=== PATIENT | female | born 1945 | race Caucasian/White ===

== ENCOUNTER 2016-03-25 15:07 | Inpatient (IN) | payer MEDICARE, MEDICAID ==
--- NOTE | 2016-03-25 15:28 | ED Physician Chart ---
Chief Complaint/HPI - Patient Information Date Seen:: 03/25/16 Time Seen:: 15:18 History of Present Illness:: Pt is Hebrew speaking. Interpretation is provided by our staff member Chasity. Pt has had recurrent vertigo for about 15 years, worse over past 2 years. Pt has transient episode of vertigo at about noon which has resolved. Pt had transient nausea. No V/D. No fever. Pt's baseline function is ambulatory with aid of a walker or wheelchair. Allergies:: Allergies Allergy/AdvReac Type Severity Reaction Status Date / Time No Known Allergies Allergy Verified 03/25/16 15:16 Vitals:: Vital Signs - 8 hr 03/25/16 15:16 Temp 98.5 F HR 94 RR 21 BP 146/85 O2 Sat % 97 Historian:: Patient Family MD/PCP:: Dr. Bailon. LMP:: Postmenopausal. Review:: Nurse's Note Reviewed, Transfer documents Reviewed Past Medical History - Past Medical History Past Medical History: HTN, PUD/GERD, Arthritis, Other (Peripheral vascular disease. Peripheral neuropathy.) Family History: None Social History: Non Smoker, No Alcohol, No Drug Use, , Care Facility Employment:: Retired. Surgical History: Cholecystectomy (about 18 y/a.), Hysterectomy (6 y/a), HIP (R hip replacement surgery about a month ago.), other (Abdominal surgery related to bowel obstruction about 6 y/a. Bilateral knee surgeries '13) Psychiatricy History: None Medication: Reviewed Physical Exam - Physical Examination General/Constitutional: Awake, Well-developed, well-nourished, Alert, No distress, Non-toxic appearing Other Gen/Cons comments:: Breathes comfortably, speaks clearly, and interacts normally. Head: Atraumatic Eyes: Lids, conjuctiva normal, PERRL, EOMI Skin: Well hydrated, No lymphadenopathy Other Skin comments:: Well healed surgical scar noticed at R lateral hip region. ENMT: External ears, nose nl, TM canals nl, Nasal exam nl, Oropharynx nl, Tonsils nl Neck: Nontender, Full ROM w/o pain, No JVD, No nuchal rigidity, No bruit, No mass, No stridor Respiratory: Nl effort/Exclusion, Clear to Auscultation, No Wheeze/Rhonchi/Rales Cardio Vascular: RRR, No murmur, gallop, rubs, NL S1 S2 GI: No tenderness/rebounding/guarding, No organomegaly, No hernia, Normal BS's, Nondistended, No mass/bruits, No McBurney tenderness Other GI comments:: Abdomen is soft. Well healed longitudinal midline surgical scar noticed. : No CVA tenderness Extremities: No edema Neuro/Psych: Alert/oriented (oriented x 3.), Mood normal, No focal deficits Other Neuro/Psych comments:: CN II - XII are grossly intact. Cerebellar exam (F to N, ESAU): normal. Labs/Radiology/EKG Results - Lab Results Results: Laboratory Tests 03/25/16 03/25/16 15:45 15:45 WBC 16.6 H RBC 4.89 Hgb 13.4 Hct 39.8 MCV 81.5 MCH 27.4 MCHC Differential 33.6 RDW 14.0 Plt Count 298 MPV 8.1 Neutrophils % 84.5 H Lymphocytes % 7.8 L Monocytes % 6.3 Eosinophils % 0.4 Basophils % 1.0 Sodium 130 L Potassium 3.8 Chloride 95 L Carbon Dioxide 25.9 Anion Gap 12.9 BUN 14 Creatinine 0.7 Est GFR ( Amer) TNP Est GFR (Non-Af Amer) TNP BUN/Creatinine Ratio 20.0 Glucose 112 H Calcium 9.4 Urinalysis is pending. ED Septic Shock - . Is Septic Shock (SBP<90, OR Lactate>4 mmol\L) present?: No - <6hrs of presentation: Vital Signs: Vital Signs - 8 hr 03/25/16 15:16 Temp 98.5 F HR 94 RR 21 BP 146/85 O2 Sat % 97 Reassessment (Disposition) - Reassessment Reassessment:: 1700 Pt remains stable. Lab results just became available. Lab findings have been reviewed with pt. Management plan has been discussed. Dr. Bailon is to be contacted. 17[address] Case was discussed with Dr. Bailon. Pt is to be admitted to [facility] under his care. - Diagnosis Diagnosis:: Transient vertigo by hx, stable and currently asymptomatic. Leukocytosis of unknown significance. Mild hyponatremia. - Patient Disposition Admitted to:: Med/Surg Admitting Medical Physician:: Natanael Bailon Time:: 17:55 Condition at Disposition:: Stable
[2016-03-25 16:29] LABS: % EOSINOPHILS 0.4 % (0.0-5.0); % LYMPHOCYTES 7.8 % (20.0-50.0); % MONOCYTES 6.3 % (2.0-10.0); % NEUTROPHILS 84.5 % (40.0-80.0); HEMATOCRIT 39.8 % (35.0-45.0); HEMOGLOBIN 13.4 gm/dL (11.7-16.1); MEAN CELL VOLUME 81.5 fl (81-100); MEAN CORPUSCULAR HEMOGLOBIN 27.4 pg (27.0-31.0); MEAN CORPUSCULAR HGB CONC 33.6 pg (28.0-36.0); MEAN PLATELET VOLUME 8.1 fl; PLATELET COUNT 298 Th/cmm (150-400); RED BLOOD COUNT 4.89 Mil/cmm (3.80-5.20); WHITE BLOOD COUNT 16.6 Th/cmm (4.8-10.8)
[2016-03-25 16:39] LABS: ANION GAP 12.9 (7.0-16.0); BUN - UREA NITROGEN 14 mg/dL (7-25); CALCIUM SERUM 9.4 mg/dL (8.6-10.3); CARBON DIOXIDE 25.9 mEq/L (21.0-31.0); CHLORIDE 95 mEq/L (98-107); CREATININE - SERUM 0.7 mg/dL (0.6-1.2); GLUCOSE 112 mg/dL (70-105); POTASSIUM SERUM 3.8 mEq/L (3.5-5.1); SODIUM SERUM 130 mEq/L (136-145)
[2016-03-25 18:02] LABS: URINE BILIRUBIN NEGATIVE (NEGATIVE); URINE BLOOD TRACE (NEGATIVE); URINE COLOR YELLOW; URINE GLUCOSE (UA) NEGATIVE (NEGATIVE); URINE KETONE NEGATIVE (NEGATIVE)
[2016-03-25 18:03] LABS: URINE BACTERIA NONE SEEN /hpf (NONE SEEN); URINE EPITHELIAL CELLS NONE SEEN /lpf (FEW); URINE PROTEIN NEGATIVE (NEGATIVE); URINE RBC 0-2 /hpf (0-5); URINE UROBILINOGEN 0.2 E.U./dL (0.2 - 1.0); URINE WBC 0-2 /hpf (0-5)
[2016-03-25] MEDS ORDERED: Hydrocodone/APAP 5mg/325mg Tab PO PRN (19:40)
[2016-03-25] MEDS ORDERED: Magnesium Hydroxide (MOM) 30 mL UDC PO PRN (19:40)
[2016-03-25] MEDS ORDERED: Albuterol Nebulizer 2.5mg/3mL IH PRN (19:47)
[2016-03-25] MEDS ORDERED: Ipratropium Neb 0.5 mg/2.5 mL UD IH PRN (19:47)
[2016-03-25] MEDS ORDERED: guaiFENesin 200 MG/10 ML UDC PO PRN (19:48)
[2016-03-25] MEDS ORDERED: Maalox 30 mL Cup PO PRN (19:48)
[2016-03-25] MEDS: Levofloxacin 500mg/100mL 500 MG/100 ML BAG IV SCH (21:44)
[2016-03-25] MEDS: D5-0.45NS 1,000 ML IV SCH (21:45)
[2016-03-26 05:36] LABS: NEUTROPHILE ABSOLUTE 4.5 Th/cmm (1.8-8.0)
[2016-03-26 05:42] LABS: % BASOPHILS 0.5 % (0.0-2.0); % EOSINOPHILS 1.9 % (0.0-5.0); % LYMPHOCYTES 24.9 % (20.0-50.0); % MONOCYTES 11.5 % (2.0-10.0); % NEUTROPHILS 61.2 % (40.0-80.0); HEMOGLOBIN 11.9 gm/dL (11.7-16.1); MEAN CELL VOLUME 81.5 fl (81-100); MEAN CORPUSCULAR HEMOGLOBIN 27.3 pg (27.0-31.0); MEAN CORPUSCULAR HGB CONC 33.5 pg (28.0-36.0); MEAN PLATELET VOLUME 7.6 fl; PLATELET COUNT 265 Th/cmm (150-400); RED BLOOD COUNT 4.34 Mil/cmm (3.80-5.20); RED CELL DISTRIBUTION WIDTH 14.1 % (11.5-20.0)
[2016-03-26 05:52] LABS: HEMATOCRIT 35.4 % (35.0-45.0); WHITE BLOOD COUNT 7.2 Th/cmm (4.8-10.8)
[2016-03-26 05:56] LABS: ALB/GLOB RATIO 1.2 (1.0-1.8); ALKALINE PHOSPHATASE 61 U/L (34-104); ANION GAP 11.6 (7.0-16.0); BILIRUBIN,TOTAL 0.4 mg/dL (0.3-1.0); BUN - UREA NITROGEN 10 mg/dL (7-25); BUN/CREATININE RATIO 14.3; CALCIUM SERUM 9.2 mg/dL (8.6-10.3); CARBON DIOXIDE 26.2 mEq/L (21.0-31.0); CHLORIDE 98 mEq/L (98-107); CREATININE - SERUM 0.7 mg/dL (0.6-1.2); GLUCOSE 105 mg/dL (70-105); MAGNESIUM 1.8 mg/dL (1.9-2.7); POTASSIUM SERUM 3.8 mEq/L (3.5-5.1); SGOT 14 U/L (13-39); SGPT/ALT 7 U/L (7-52); SODIUM SERUM 132 mEq/L (136-145)
[2016-03-26 06:32] LABS: TSH 0.79 uIU/ml (0.34-5.60)
[2016-03-26] MEDS: Pantoprazole 40 mg EC Tab PO SCH (08:35)
[2016-03-26] MEDS: Aspirin 325 mg EC PO SCH (08:35)
[2016-03-26] MEDS: Multivitamin w/ Minerals Tab PO SCH (08:35)
--- NOTE | 2016-03-26 09:40 | Diagnostic Imaging Report ---
CHEST X-RAY: AP view INDICATION: Pneumonia COMPARISON: None FINDINGS: Bibasal pleural thickening is noted. Mild chronic changes are seen with no focal consolidation pleural effusions. Heart size is at the upper limits of normal. Tortuous senescent aorta is noted. Mild prominence of the aortic knob is noted. Degenerative changes of the spine are noted. IMPRESSION: No focal consolidation identified. Mild prominence of the aortic knob with tortuous, senescent aorta. If indicated, CT would provide additional detail and assessment.
[2016-03-26] MEDS: D5-0.45NS 1,000 ML IV SCH (11:30)
[2016-03-26] MEDS ORDERED: Mag Sulfate 2gm/50mL Premix 2 GM/50 ML BAG IV ONE (15:24)
--- NOTE | 2016-03-26 19:02 | History & Physical ---
CHIEF COMPLAINT: Vomiting and dizziness. HISTORY OF PRESENT ILLNESS: This is a 71-year-old female with history of osteoarthritis, hypertension, and GERD, who was admitted from nursing facility secondary to intractable vomiting. The patient was dizzy and not acting herself. The patient was admitted through the ER. The patient with elevated white count ____. PAST MEDICAL HISTORY: As mentioned in history of present illness. PAST SURGICAL HISTORY: Status post ____ surgery and three abdominal surgeries. ALLERGIES: No known drug allergies. MEDICATIONS: The patient is on aspirin, Tylenol, Ambien, Pletal, Colace, Nexium, gabapentin, Fox, ____. FAMILY HISTORY: Noncontributory. SOCIAL HISTORY: The patient is a nonsmoker, nondrinker, a senior care patient. The patient is one time with four children. REVIEW OF SYSTEMS: GENERAL: Complains of not feeling well. HEENT: No blurred vision. LUNGS: ____ COPD or asthma. HEART: ____. ABDOMEN: The patient with abdominal pain and vomiting. NEUROLOGIC: The patient also felt dizzy. No headaches, seizure or syncope. PHYSICAL EXAMINATION: VITAL SIGNS: Blood pressure 129/87, respirations 19, pulse 81, and temperature 98.3. GENERAL: Elderly female, appears stated age. NECK: Supple. LUNGS: Equal breath sounds, a few rhonchi. CARDIOVASCULAR: Heart regular rate and rhythm without appreciable murmurs. ABDOMEN: Soft, nontender, and globular. Positive bowel sounds. EXTREMITIES: Positive ____. NEURO: Limited movement of all four extremities. LABORATORY DATA: WBC is 16.6, hemoglobin 13, and platelets ____. Sodium 130, potassium 3.8, BUN 14, and creatinine 0.7. Blood sugar 112. Magnesium 1.8. ASSESSMENT AND PLAN: Possible sepsis, leukocytosis, dizziness, vomiting, osteoarthritis, hypertension, and gastroesophageal reflux disease. We will continue the patient on IV hydration. We will correct electrolyte abnormalities. We will consider KUB. If vomiting worsens, may consider abdominal ultrasound. Continue antiemetic medications. We will continue to follow the patient and monitor setting. JOB# [id number]
--- NOTE | 2016-03-26 20:28 | Admit Criteria Form ---
Admit Criteria Forms - Admit Criteria Diagnosis: VERTIGO Clinical Indications for Admission to Inpatient Care (Place 'X' for any and all applicable criteria): Admission is indicated for ANY ONE of the following(1)(2)(3)(4): [ ]I. Acute bacterial labyrinthitis [ ]II. A suspected etiology that requires admission for treatment [X ]III. Inpatient admission required rather than observation care (Also use Vertigo: Observation Care as appropriate) because of ANY ONE of the following: [ ]a) Hemodynamic instability that is severe or persistent [ ]b) Signs or symptoms that are severe or persistent (eg, vomiting , orthostasis, inability to ambulate) [ ]c) Cardiac arrhythmias of immediate concern [ ]d) Severe (new) neurologic findings requiring inpatient care as indicated by ANY ONE of the following(6)(7) [ ]1) Cerebral bleeding, ischemia, or vasospasm(8)(9) [ ]2) Increased intracranial pressure or hydrocephalus(10) (11)(12) [ ]3) Papilledema [ ]4) Cerebral edema [ ]5) Mass effect on CT scan [ X]e) Vomiting that is severe or persistent [ ]f) Continuous IV infusion of anticoagulation, platelet inhibitor, vasoactive, or antiarrhythmic medication [ ]g) Cerebral bleeding, hydrocephalus, or vasospasm monitoring(14) [ ]h) Increased intracranial pressure or cerebral edema monitoring [ ]i) Other condition, treatment or monitoring requiring inpatient admission [ ]IV. Cerebellar, brainstem, or cerebral ischemia or hemorrhage(5) Extended stay beyond goal length of stay may be needed for evaluating and treating a specific cause of dizziness, including(26): [ ]a) Head injury (27) ( Also use Traumatic Brain Injury, Nonsurgical Treatment guideline) [ ]b) New-onset vertebrobasilar vascular insufficiency(23) [ ]c) Acute Meniere disease with intractable symptoms [ ]d) Cardiac arrhythmias or conduction defects [ ]e) Acute neurologic event causing dizziness [ ]f) Myocardial ischemia [ ]g) Acute bacterial labyrinthitis(1) [ ]h) Severe acute vestibular neuronitis(18) The original [facility] content created by Stanley Patel has been revised. The portions of the content which have been revised are identified through the use of italic text or in bold, and Stanley Patel has neither reviewed nor approved the modified material. All other unmodified content is copyright [facility]. Please see references footnoted in the original [facility] edition 2016 Admit Criteria Met?: Yes
[2016-03-26] MEDS: Levofloxacin 500mg/100mL 500 MG/100 ML BAG IV SCH (20:32)
[2016-03-27] MEDS: D5-0.45NS 1,000 ML IV SCH (02:52)
[2016-03-27 07:18] LABS: AMYLASE SERUM 62 U/L (29-103); ANION GAP 10.1 (7.0-16.0); BUN - UREA NITROGEN 8 mg/dL (7-25); BUN/CREATININE RATIO 13.3; CALCIUM SERUM 9.2 mg/dL (8.6-10.3); CARBON DIOXIDE 26.7 mEq/L (21.0-31.0); CHLORIDE 99 mEq/L (98-107); CREATININE - SERUM 0.6 mg/dL (0.6-1.2); GLUCOSE 106 mg/dL (70-105); LIPASE 28 U/L (11-82); POTASSIUM SERUM 3.8 mEq/L (3.5-5.1); SODIUM SERUM 132 mEq/L (136-145)
[2016-03-27] MEDS: Aspirin 325 mg EC PO SCH (11:54)
[2016-03-27] MEDS: Multivitamin w/ Minerals Tab PO SCH (11:56)
[2016-03-27] MEDS: Pantoprazole 40 mg EC Tab PO SCH (11:56)
--- NOTE | 2016-03-27 11:59 | Diagnostic Imaging Report ---
KUB abdominal film HISTORY: Pain There is a nonspecific gas pattern of nondilated bowel. Severe degenerative changes noted throughout the spine with a scoliosis convex to the right. There appears to be compression involving multiple lower thoracic and upper lumbar vertebrae. Right hip arthroplasty noted. IMPRESSION: 1. Nonspecific bowel gas pattern 2. Severe degenerative changes throughout the spine with partial compression involving multiple vertebrae 3. Atherosclerotic vascular changes
--- NOTE | 2016-03-27 12:22 | Internal Medicine Prog Note ---
Internal Medicine Subjective - Subjective Service Date: 03/27/16 Patient seen and examined:: with staff Patient is:: awake Patient Complaints of:: congestion, headache Per staff patient is:: no adverse event Internal Medicine Objective - Results Result Diagrams: 03/26/16 05:00 03/27/16 06:05 Recent Labs: Laboratory Last Values WBC 7.2 Th/cmm (4.8-10.8) D 03/26/16 05:00 RBC 4.34 Mil/cmm (3.80-5.20) 03/26/16 05:00 Hgb 11.9 gm/dL (11.7-16.1) 03/26/16 05:00 Hct 35.4 % (35.0-45.0) D 03/26/16 05:00 MCV 81.5 fl (81-100) 03/26/16 05:00 MCH 27.3 pg (27.0-31.0) 03/26/16 05:00 MCHC Differential 33.5 pg (28.0-36.0) 03/26/16 05:00 RDW 14.1 % (11.5-20.0) 03/26/16 05:00 Plt Count 265 Th/cmm (150-400) 03/26/16 05:00 MPV 7.6 fl 03/26/16 05:00 Neutrophils % 61.2 % (40.0-80.0) 03/26/16 05:00 Lymphocytes % 24.9 % (20.0-50.0) 03/26/16 05:00 Monocytes % 11.5 % (2.0-10.0) H 03/26/16 05:00 Eosinophils % 1.9 % (0.0-5.0) 03/26/16 05:00 Basophils % 0.5 % (0.0-2.0) 03/26/16 05:00 Sodium 132 mEq/L (136-145) L 03/27/16 06:05 Potassium 3.8 mEq/L (3.5-5.1) 03/27/16 06:05 Chloride 99 mEq/L (98-107) 03/27/16 06:05 Carbon Dioxide 26.7 mEq/L (21.0-31.0) 03/27/16 06:05 Anion Gap 10.1 (7.0-16.0) 03/27/16 06:05 BUN 8 mg/dL (7-25) 03/27/16 06:05 Creatinine 0.6 mg/dL (0.6-1.2) 03/27/16 06:05 Est GFR ( Amer) TNP 03/27/16 06:05 Est GFR (Non-Af Amer) TNP 03/27/16 06:05 BUN/Creatinine Ratio 13.3 03/27/16 06:05 Glucose 106 mg/dL (70-105) H 03/27/16 06:05 Calcium 9.2 mg/dL (8.6-10.3) 03/27/16 06:05 Magnesium 1.8 mg/dL (1.9-2.7) L 03/26/16 05:00 Total Bilirubin 0.4 mg/dL (0.3-1.0) 03/26/16 05:00 AST 14 U/L (13-39) 03/26/16 05:00 ALT 7 U/L (7-52) 03/26/16 05:00 Alkaline Phosphatase 61 U/L (34-104) 03/26/16 05:00 Ammonia 42 umol/L (16-53) 03/26/16 05:00 Total Protein 6.5 gm/dL (6.0-8.3) 03/26/16 05:00 Albumin 3.5 gm/dL (3.7-5.3) L 03/26/16 05:00 Globulin 3.0 gm/dL 03/26/16 05:00 Albumin/Globulin Ratio 1.2 (1.0-1.8) 03/26/16 05:00 Amylase 62 U/L (29-103) 03/27/16 06:05 Lipase 28 U/L (11-82) 03/27/16 06:05 TSH 0.79 uIU/ml (0.34-5.60) 03/26/16 05:00 Urine Source CLEAN C 03/25/16 17:45 Urine Color YELLOW 03/25/16 17:45 Urine Clarity CLEAR (CLEAR) 03/25/16 17:45 Urine pH 7.0 03/25/16 17:45 Ur Specific [place] 1.010 (1.005-1.030) 03/25/16 17:45 Urine Protein NEGATIVE mg/dL (NEGATIVE) 03/25/16 17:45 Urine Glucose (UA) NEGATIVE mg/dL (NEGATIVE) 03/25/16 17:45 Urine Ketones NEGATIVE mg/dL (NEGATIVE) 03/25/16 17:45 Urine Blood TRACE (NEGATIVE) 03/25/16 17:45 Urine Nitrate NEGATIVE (NEGATIVE) 03/25/16 17:45 Urine Bilirubin NEGATIVE (NEGATIVE) 03/25/16 17:45 Urine Urobilinogen 0.2 E.U./dL (0.2 - 1.0) 03/25/16 17:45 Ur Leukocyte Esterase TRACE (NEGATIVE) H 03/25/16 17:45 Urine RBC 0-2 /hpf (0-5) 03/25/16 17:45 Urine WBC 0-2 /hpf (0-5) 03/25/16 17:45 Ur Epithelial Cells NONE SEEN /lpf (FEW) 03/25/16 17:45 Urine Bacteria NONE SEEN /hpf (NONE SEEN) 03/25/16 17:45 - Physical Exam Vitals and I&O: Vital Signs Temp 98 F 03/27/16 04:00 Pulse 86 03/27/16 11:55 Resp 20 03/27/16 08:00 BP 138/75 03/27/16 11:55 Pulse Ox 98 03/27/16 08:00 Intake & Output 03/26/16 03/27/16 03/27/16 18:59 06:59 18:59 Intake Total 1000 1450 Balance 1000 1450 Intake: Intake, IV Amount 1000 1100 D5-0.45NS 1,000 ml @ 75 1000 1000 mls/hr IV .[id number] MILE Rx #:[id number] Levofloxacin 500mg/100mL 100 500 mg In 100 ml @ 100 mls/hr IV Q24HR [facility] Rx#: [id number] Oral 350 Other: # Voids 2 Active Medications: Current Medications Acetaminophen (Tylenol) 325 mg PO Q6H PRN PRN Reason: MILD/MODERATE PAIN Stop: 05/24/16 19:39 Last Admin: 03/27/16 11:56 Dose: 325 mg Acetaminophen/Hydrocodone Bitart ([place] 5mg/325mg) 1 tab PO Q6H PRN PRN Reason: Severe Pain Stop: 05/24/16 19:39 Al Hydrox/Mg Hydrox/Simethicone (Maalox) 30 ml PO Q6HR PRN PRN Reason: GI DISTRESS Stop: 05/24/16 19:47 Albuterol Sulfate (Albuterol 2.5mg/3ml Neb Ud) 2.5 mg IH Q2HR PRN PRN Reason: Shortness of Breath or Wheeze Stop: 05/24/16 19:46 Aspirin (Ecotrin) 325 mg PO DAILY [facility] Stop: 05/25/16 08:59 Last Admin: 03/27/16 11:54 Dose: 325 mg Bisacodyl (Dulcolax 10 Mg Supp) 10 mg RC DAILY PRN PRN Reason: BOWEL MANAGEMENT IF MOM INEFFE Stop: 05/24/16 19:39 Cilostazol (Pletal) 50 mg PO DAILY [facility] Stop: 05/25/16 08:59 Last Admin: 03/27/16 11:54 Dose: 50 mg Clonidine HCl (Catapres) 0.1 mg PO Q6HR PRN PRN Reason: SBP GREATER THAN 160 Stop: 05/24/16 19:47 Docusate Sodium (Colace) 100 mg PO DAILY [facility] Stop: 05/25/16 08:59 Last Admin: 03/27/16 11:55 Dose: 100 mg Gabapentin (Neurontin) 300 mg PO TID [facility] Stop: 05/24/16 20:59 Last Admin: 03/27/16 11:55 Dose: 300 mg Guaifenesin (Robitussin) 200 mg PO Q4HR PRN PRN Reason: Cough or Congestion Stop: 05/24/16 19:47 Dextrose/Sodium Chloride (D5-0.45ns) 1,000 mls @ 75 mls/hr IV .[id number] [facility] Stop: 05/24/16 19:59 Last Admin: 03/27/16 02:52 Dose: 75 mls/hr Levofloxacin (Levaquin Pb) 500 mg in 100 mls @ 100 mls/hr IV Q24HR [facility] Stop: 05/24/16 20:59 Last Infusion: 03/26/16 21:32 Dose: Infused Ipratropium [place] (Atrovent Neb 0.5mg/2.5ml) 0.5 mg IH Q2HR PRN PRN Reason: Shortness of Breath or Wheeze Stop: 05/24/16 19:46 Losartan Potassium (Cozaar) 25 mg PO DAILY [facility] Stop: 05/25/16 08:59 Last Admin: 03/27/16 11:55 Dose: 25 mg Magnesium Hydroxide (Milk Of Magnesia) 30 ml PO Q24H PRN PRN Reason: IF NO BM IN THREE DAYS Stop: 05/24/16 19:39 Meclizine HCl (Antivert) 25 mg PO DAILY PRN PRN Reason: Nausea / Vomiting Stop: 05/24/16 19:46 Ondansetron HCl (Zofran) 4 mg IV Q8H PRN PRN Reason: Nausea / Vomiting Stop: 05/24/16 19:47 Pantoprazole Sodium (Protonix) 40 mg PO DAILY [facility] Stop: 05/25/16 08:59 Last Admin: 03/27/16 11:56 Dose: 40 mg Zolpidem Tartrate (Ambien) 5 mg PO HS PRN PRN Reason: Insomnia Stop: 05/24/16 19:39 Last Admin: 03/26/16 22:30 Dose: 5 mg General: weak, alert HEENT: NC/AT Neck: Supple Lungs: ronchi Cardiovascular: RRR, Normal S1, Normal S2, without murmur Abdomen: soft non-tender Extremities: clear Neurological: no change Internal Medicine Assmt/Plan - Assessment Assessment: possible sepsis leukocytosis dizziness vomiting oa htn gerd - Plan Plan: ivf for hydration continue ivabx cbc/bmp in am hhn as needed continue current plan of care
[2016-03-27 15:14] LABS: FOLIC ACID 18.4 ng/mL (>3.0)
[2016-03-27] MEDS: Levofloxacin 500mg/100mL 500 MG/100 ML BAG IV SCH (20:27)
[2016-03-28] MEDS: D5-0.45NS 1,000 ML IV SCH (04:58)
--- NOTE | 2016-03-28 05:55 | Consultation ---
INPATIENT GI CONSULTATION REFERRING PHYSICIAN: Dr. Bailon. REASON FOR CONSULTATION: Vomiting. HISTORY OF PRESENT ILLNESS: This is a 71-year-old female with multiple medical problems, came to the hospital with vomiting and was diagnosed with urinary tract infection. The patient denies having any abdominal pain. She presently is feeling better. Denies any diarrhea or constipation. PAST MEDICAL HISTORY: Osteoarthritis, hypertension and GERD. PAST SURGICAL HISTORY: Abdominal surgery, but cannot be more specific. FAMILY HISTORY: Negative. SOCIAL HISTORY: No tobacco, alcohol or IV drug usage. ALLERGIES: None. CURRENT MEDICATIONS: Tylenol, Ennice, Maalox, Ecotrin, Dulcolax, Pletal, Catapres, Neurontin, Robitussin, Levaquin and Protonix. REVIEW OF SYSTEMS: Ten point review of system was performed. The pertinent positives were vomiting and UTI. All other systems were otherwise negative. PHYSICAL EXAMINATION: VITAL SIGNS: Temperature 97.2, breathing 17, pulse of 82, blood pressure 130/79 and satting 98%. GENERAL: No apparent distress. EYES: Anicteric, normal conjunctivae. HENT: Normocephalic and atraumatic. Moist mucous membranes. NECK: Soft and supple. CHEST: Clear ____. CARDIOVASCULAR: Regular rate and rhythm. ABDOMEN: Soft, nontender, nondistended, normal bowel sounds. SKIN: Warm, dry. EXTREMITIES: Reveal no cyanosis. PSYCHOLOGIC: Alert and oriented x 3. LABORATORY DATA: Show white count of 7.2, hemoglobin 11.9 and platelets of 265. Total bilirubin is 0.4, AST 14, ALT 7, alkaline phosphatase 61 and lipase is 28. UTI shows leukocyte esterase. IMPRESSION: This 71-year-old female with vomiting that has since resolved. Etiology is unclear. KUB was unremarkable. CBC, LFTs and lipase were normal. Making hepatobiliary process is less likely. She also has UTI which could be ____ factor. The case was discussed with Dr. Bailon. It was felt that the patient will be benefitted from endoscopic evaluation. PLAN: 1. Ultrasound, rule out gallstones. 2. An upper GI series was considered, but endoscopy would be better test and we could do this perhaps for the patient tomorrow. Thank you for allowing me to participate. Please call me if you have any questions. JOB# [id number]
[2016-03-28 07:30] LABS: % BASOPHILS 0.6 % (0.0-2.0); % LYMPHOCYTES 27.3 % (20.0-50.0); % MONOCYTES 10.8 % (2.0-10.0); % NEUTROPHILS 58.3 % (40.0-80.0); HEMATOCRIT 36.6 % (35.0-45.0); HEMOGLOBIN 12.6 gm/dL (11.7-16.1); MEAN CELL VOLUME 80.8 fl (81-100); MEAN CORPUSCULAR HEMOGLOBIN 27.8 pg (27.0-31.0); MEAN CORPUSCULAR HGB CONC 34.4 pg (28.0-36.0); MEAN PLATELET VOLUME 7.7 fl; NEUTROPHILE ABSOLUTE 3.1 Th/cmm (1.8-8.0); PLATELET COUNT 276 Th/cmm (150-400); RED BLOOD COUNT 4.53 Mil/cmm (3.80-5.20); RED CELL DISTRIBUTION WIDTH 13.7 % (11.5-20.0)
[2016-03-28 07:36] LABS: WHITE BLOOD COUNT 5.4 Th/cmm (4.8-10.8)
[2016-03-28 07:41] LABS: INR 1.09 (0.5-1.4); PROTHROMBIN TIME (TEST) 10.9 SECONDS (9.5-11.5)
[2016-03-28 07:46] LABS: ANION GAP 10.3 (7.0-16.0); BUN - UREA NITROGEN 6 mg/dL (7-25); CALCIUM SERUM 9.1 mg/dL (8.6-10.3); CARBON DIOXIDE 26.5 mEq/L (21.0-31.0); CHLORIDE 96 mEq/L (98-107); CREATININE - SERUM 0.6 mg/dL (0.6-1.2); GLUCOSE 109 mg/dL (70-105); POTASSIUM SERUM 3.8 mEq/L (3.5-5.1); SODIUM SERUM 129 mEq/L (136-145)
[2016-03-28] MEDS: Aspirin 325 mg EC PO SCH (10:25)
[2016-03-28] MEDS: Multivitamin w/ Minerals Tab PO SCH (10:26)
[2016-03-28] MEDS: Pantoprazole 40 mg EC Tab PO SCH (10:26)
--- NOTE | 2016-03-28 14:04 | Internal Medicine Prog Note ---
Internal Medicine Subjective - Subjective Service Date: 03/28/16 (REFUSED EGD DENIES ANY ABDOMINAL PAIN OR ANY N/V) Patient seen and examined:: with staff Patient is:: awake Per staff patient is:: no adverse event Internal Medicine Objective - Results Result Diagrams: 03/28/16 06:30 03/28/16 06:30 Recent Labs: Laboratory Last Values WBC 5.4 Th/cmm (4.8-10.8) D 03/28/16 06:30 RBC 4.53 Mil/cmm (3.80-5.20) 03/28/16 06:30 Hgb 12.6 gm/dL (11.7-16.1) 03/28/16 06:30 Hct 36.6 % (35.0-45.0) 03/28/16 06:30 MCV 80.8 fl (81-100) L 03/28/16 06:30 MCH 27.8 pg (27.0-31.0) 03/28/16 06:30 MCHC Differential 34.4 pg (28.0-36.0) 03/28/16 06:30 RDW 13.7 % (11.5-20.0) 03/28/16 06:30 Plt Count 276 Th/cmm (150-400) 03/28/16 06:30 MPV 7.7 fl 03/28/16 06:30 Neutrophils % 58.3 % (40.0-80.0) 03/28/16 06:30 Lymphocytes % 27.3 % (20.0-50.0) 03/28/16 06:30 Monocytes % 10.8 % (2.0-10.0) H 03/28/16 06:30 Eosinophils % 3.0 % (0.0-5.0) 03/28/16 06:30 Basophils % 0.6 % (0.0-2.0) 03/28/16 06:30 PT 10.9 SECONDS (9.5-11.5) 03/28/16 06:30 INR 1.09 (0.5-1.4) 03/28/16 06:30 Sodium 129 mEq/L (136-145) L 03/28/16 06:30 Potassium 3.8 mEq/L (3.5-5.1) 03/28/16 06:30 Chloride 96 mEq/L (98-107) L 03/28/16 06:30 Carbon Dioxide 26.5 mEq/L (21.0-31.0) 03/28/16 06:30 Anion Gap 10.3 (7.0-16.0) 03/28/16 06:30 BUN 6 mg/dL (7-25) L 03/28/16 06:30 Creatinine 0.6 mg/dL (0.6-1.2) 03/28/16 06:30 Est GFR ( Amer) TNP 03/28/16 06:30 Est GFR (Non-Af Amer) TNP 03/28/16 06:30 BUN/Creatinine Ratio 10.0 03/28/16 06:30 Glucose 109 mg/dL (70-105) H 03/28/16 06:30 Calcium 9.1 mg/dL (8.6-10.3) 03/28/16 06:30 Magnesium 1.8 mg/dL (1.9-2.7) L 03/26/16 05:00 Total Bilirubin 0.4 mg/dL (0.3-1.0) 03/26/16 05:00 AST 14 U/L (13-39) 03/26/16 05:00 ALT 7 U/L (7-52) 03/26/16 05:00 Alkaline Phosphatase 61 U/L (34-104) 03/26/16 05:00 Ammonia 42 umol/L (16-53) 03/26/16 05:00 Total Protein 6.5 gm/dL (6.0-8.3) 03/26/16 05:00 Albumin 3.5 gm/dL (3.7-5.3) L 03/26/16 05:00 Globulin 3.0 gm/dL 03/26/16 05:00 Albumin/Globulin Ratio 1.2 (1.0-1.8) 03/26/16 05:00 Amylase 62 U/L (29-103) 03/27/16 06:05 Lipase 28 U/L (11-82) 03/27/16 06:05 Vitamin B12 >1999 pg/mL (211-946) H 03/26/16 05:00 Folic Acid 18.4 ng/mL (>3.0) 03/26/16 05:00 TSH 0.79 uIU/ml (0.34-5.60) 03/26/16 05:00 Urine Source CLEAN C 03/25/16 17:45 Urine Color YELLOW 03/25/16 17:45 Urine Clarity CLEAR (CLEAR) 03/25/16 17:45 Urine pH 7.0 03/25/16 17:45 Ur Specific [place] 1.010 (1.005-1.030) 03/25/16 17:45 Urine Protein NEGATIVE mg/dL (NEGATIVE) 03/25/16 17:45 Urine Glucose (UA) NEGATIVE mg/dL (NEGATIVE) 03/25/16 17:45 Urine Ketones NEGATIVE mg/dL (NEGATIVE) 03/25/16 17:45 Urine Blood TRACE (NEGATIVE) 03/25/16 17:45 Urine Nitrate NEGATIVE (NEGATIVE) 03/25/16 17:45 Urine Bilirubin NEGATIVE (NEGATIVE) 03/25/16 17:45 Urine Urobilinogen 0.2 E.U./dL (0.2 - 1.0) 03/25/16 17:45 Ur Leukocyte Esterase TRACE (NEGATIVE) H 03/25/16 17:45 Urine RBC 0-2 /hpf (0-5) 03/25/16 17:45 Urine WBC 0-2 /hpf (0-5) 03/25/16 17:45 Ur Epithelial Cells NONE SEEN /lpf (FEW) 03/25/16 17:45 Urine Bacteria NONE SEEN /hpf (NONE SEEN) 03/25/16 17:45 - Physical Exam Vitals and I&O: Vital Signs Temp 97.8 F 03/28/16 08:00 Pulse 82 03/28/16 10:25 Resp 17 03/28/16 08:00 BP 152/84 03/28/16 10:25 Pulse Ox 96 03/28/16 08:00 Intake & Output 03/27/16 03/28/16 03/28/16 18:59 06:59 18:59 Intake Total 1999 600 Output Total 1 Balance 1998 600 Intake: Intake, IV Amount 1000 D5-0.45NS 1,000 ml @ 75 1000 mls/hr IV .[id number] [facility] Rx #:[id number] Oral 1000 600 Output: Stool 1 Other: # Voids 2 3 Active Medications: Current Medications Acetaminophen (Tylenol) 325 mg PO Q6H PRN PRN Reason: MILD/MODERATE PAIN Stop: 05/24/16 19:39 Last Admin: 03/27/16 17:44 Dose: 325 mg Acetaminophen/Hydrocodone Bitart ([place] 5mg/325mg) 1 tab PO Q6H PRN PRN Reason: Severe Pain Stop: 05/24/16 19:39 Al Hydrox/Mg Hydrox/Simethicone (Maalox) 30 ml PO Q6HR PRN PRN Reason: GI DISTRESS Stop: 05/24/16 19:47 Albuterol Sulfate (Albuterol 2.5mg/3ml Neb Ud) 2.5 mg IH Q2HR PRN PRN Reason: Shortness of Breath or Wheeze Stop: 05/24/16 19:46 Aspirin (Ecotrin) 325 mg PO DAILY [facility] Stop: 05/25/16 08:59 Last Admin: 03/28/16 10:25 Dose: Not Given Bisacodyl (Dulcolax 10 Mg Supp) 10 mg RC DAILY PRN PRN Reason: BOWEL MANAGEMENT IF MOM INEFFE Stop: 05/24/16 19:39 Cilostazol (Pletal) 50 mg PO DAILY [facility] Stop: 05/25/16 08:59 Last Admin: 03/28/16 10:26 Dose: Not Given Clonidine HCl (Catapres) 0.1 mg PO Q6HR PRN PRN Reason: SBP GREATER THAN 160 Stop: 05/24/16 19:47 Docusate Sodium (Colace) 100 mg PO DAILY [facility] Stop: 05/25/16 08:59 Last Admin: 03/28/16 10:26 Dose: Not Given Gabapentin (Neurontin) 300 mg PO TID [facility] Stop: 05/24/16 20:59 Last Admin: 03/28/16 10:25 Dose: 300 mg Guaifenesin (Robitussin) 200 mg PO Q4HR PRN PRN Reason: Cough or Congestion Stop: 05/24/16 19:47 Dextrose/Sodium Chloride (D5-0.45ns) 1,000 mls @ 75 mls/hr IV .[id number] [facility] Stop: 05/24/16 19:59 Last Admin: 03/28/16 04:58 Dose: 75 mls/hr Levofloxacin (Levaquin Pb) 500 mg in 100 mls @ 100 mls/hr IV Q24HR [facility] Stop: 05/24/16 20:59 Last Admin: 03/27/16 20:27 Dose: 100 mls/hr Ipratropium [place] (Atrovent Neb 0.5mg/2.5ml) 0.5 mg IH Q2HR PRN PRN Reason: Shortness of Breath or Wheeze Stop: 05/24/16 19:46 Losartan Potassium (Cozaar) 25 mg PO DAILY [facility] Stop: 05/25/16 08:59 Last Admin: 03/28/16 10:25 Dose: 25 mg Magnesium Hydroxide (Milk Of Magnesia) 30 ml PO Q24H PRN PRN Reason: IF NO BM IN THREE DAYS Stop: 05/24/16 19:39 Meclizine HCl (Antivert) 25 mg PO DAILY PRN PRN Reason: Nausea / Vomiting Stop: 05/24/16 19:46 Ondansetron HCl (Zofran) 4 mg IV Q8H PRN PRN Reason: Nausea / Vomiting Stop: 05/24/16 19:47 Pantoprazole Sodium (Protonix) 40 mg PO DAILY [facility] Stop: 05/25/16 08:59 Last Admin: 03/28/16 10:26 Dose: Not Given Zolpidem Tartrate (Ambien) 5 mg PO HS PRN PRN Reason: Insomnia Stop: 05/24/16 19:39 Last Admin: 03/27/16 20:28 Dose: 5 mg General: alert HEENT: NC/AT, PERRLA Neck: Supple Lungs: CTAB Cardiovascular: RRR, Normal S1, Normal S2, without murmur Abdomen: soft non-tender Internal Medicine Assmt/Plan - Assessment Assessment: possible sepsis leukocytosis dizziness vomiting oa htn gerd - Plan Plan: ivf for hydration continue ivabx DC PLANNING hhn as needed continue current plan of care
--- NOTE | 2016-03-28 14:07 | Internal Medicine Prog Note ---
Internal Medicine Subjective - Subjective Service Date: 03/28/16 (dc summary [id number]) Internal Medicine Objective - Results Result Diagrams: 03/28/16 06:30 03/28/16 06:30 Recent Labs: Laboratory Last Values WBC 5.4 Th/cmm (4.8-10.8) D 03/28/16 06:30 RBC 4.53 Mil/cmm (3.80-5.20) 03/28/16 06:30 Hgb 12.6 gm/dL (11.7-16.1) 03/28/16 06:30 Hct 36.6 % (35.0-45.0) 03/28/16 06:30 MCV 80.8 fl (81-100) L 03/28/16 06:30 MCH 27.8 pg (27.0-31.0) 03/28/16 06:30 MCHC Differential 34.4 pg (28.0-36.0) 03/28/16 06:30 RDW 13.7 % (11.5-20.0) 03/28/16 06:30 Plt Count 276 Th/cmm (150-400) 03/28/16 06:30 MPV 7.7 fl 03/28/16 06:30 Neutrophils % 58.3 % (40.0-80.0) 03/28/16 06:30 Lymphocytes % 27.3 % (20.0-50.0) 03/28/16 06:30 Monocytes % 10.8 % (2.0-10.0) H 03/28/16 06:30 Eosinophils % 3.0 % (0.0-5.0) 03/28/16 06:30 Basophils % 0.6 % (0.0-2.0) 03/28/16 06:30 PT 10.9 SECONDS (9.5-11.5) 03/28/16 06:30 INR 1.09 (0.5-1.4) 03/28/16 06:30 Sodium 129 mEq/L (136-145) L 03/28/16 06:30 Potassium 3.8 mEq/L (3.5-5.1) 03/28/16 06:30 Chloride 96 mEq/L (98-107) L 03/28/16 06:30 Carbon Dioxide 26.5 mEq/L (21.0-31.0) 03/28/16 06:30 Anion Gap 10.3 (7.0-16.0) 03/28/16 06:30 BUN 6 mg/dL (7-25) L 03/28/16 06:30 Creatinine 0.6 mg/dL (0.6-1.2) 03/28/16 06:30 Est GFR ( Amer) TNP 03/28/16 06:30 Est GFR (Non-Af Amer) TNP 03/28/16 06:30 BUN/Creatinine Ratio 10.0 03/28/16 06:30 Glucose 109 mg/dL (70-105) H 03/28/16 06:30 Calcium 9.1 mg/dL (8.6-10.3) 03/28/16 06:30 Magnesium 1.8 mg/dL (1.9-2.7) L 03/26/16 05:00 Total Bilirubin 0.4 mg/dL (0.3-1.0) 03/26/16 05:00 AST 14 U/L (13-39) 03/26/16 05:00 ALT 7 U/L (7-52) 03/26/16 05:00 Alkaline Phosphatase 61 U/L (34-104) 03/26/16 05:00 Ammonia 42 umol/L (16-53) 03/26/16 05:00 Total Protein 6.5 gm/dL (6.0-8.3) 03/26/16 05:00 Albumin 3.5 gm/dL (3.7-5.3) L 03/26/16 05:00 Globulin 3.0 gm/dL 03/26/16 05:00 Albumin/Globulin Ratio 1.2 (1.0-1.8) 03/26/16 05:00 Amylase 62 U/L (29-103) 03/27/16 06:05 Lipase 28 U/L (11-82) 03/27/16 06:05 Vitamin B12 >1999 pg/mL (211-946) H 03/26/16 05:00 Folic Acid 18.4 ng/mL (>3.0) 03/26/16 05:00 TSH 0.79 uIU/ml (0.34-5.60) 03/26/16 05:00 Urine Source CLEAN C 03/25/16 17:45 Urine Color YELLOW 03/25/16 17:45 Urine Clarity CLEAR (CLEAR) 03/25/16 17:45 Urine pH 7.0 03/25/16 17:45 Ur Specific [place] 1.010 (1.005-1.030) 03/25/16 17:45 Urine Protein NEGATIVE mg/dL (NEGATIVE) 03/25/16 17:45 Urine Glucose (UA) NEGATIVE mg/dL (NEGATIVE) 03/25/16 17:45 Urine Ketones NEGATIVE mg/dL (NEGATIVE) 03/25/16 17:45 Urine Blood TRACE (NEGATIVE) 03/25/16 17:45 Urine Nitrate NEGATIVE (NEGATIVE) 03/25/16 17:45 Urine Bilirubin NEGATIVE (NEGATIVE) 03/25/16 17:45 Urine Urobilinogen 0.2 E.U./dL (0.2 - 1.0) 03/25/16 17:45 Ur Leukocyte Esterase TRACE (NEGATIVE) H 03/25/16 17:45 Urine RBC 0-2 /hpf (0-5) 03/25/16 17:45 Urine WBC 0-2 /hpf (0-5) 03/25/16 17:45 Ur Epithelial Cells NONE SEEN /lpf (FEW) 03/25/16 17:45 Urine Bacteria NONE SEEN /hpf (NONE SEEN) 03/25/16 17:45 - Physical Exam Vitals and I&O: Vital Signs Temp 97.8 F 03/28/16 08:00 Pulse 82 03/28/16 10:25 Resp 17 03/28/16 08:00 BP 152/84 03/28/16 10:25 Pulse Ox 96 03/28/16 08:00 Intake & Output 03/27/16 03/28/16 03/28/16 18:59 06:59 18:59 Intake Total 1999 600 Output Total 1 Balance 1998 600 Intake: Intake, IV Amount 1000 D5-0.45NS 1,000 ml @ 75 1000 mls/hr IV .[id number] [facility] Rx #:[id number] Oral 1000 600 Output: Stool 1 Other: # Voids 2 3 Active Medications: Current Medications Acetaminophen (Tylenol) 325 mg PO Q6H PRN PRN Reason: MILD/MODERATE PAIN Stop: 05/24/16 19:39 Last Admin: 03/27/16 17:44 Dose: 325 mg Acetaminophen/Hydrocodone Bitart ([place] 5mg/325mg) 1 tab PO Q6H PRN PRN Reason: Severe Pain Stop: 05/24/16 19:39 Al Hydrox/Mg Hydrox/Simethicone (Maalox) 30 ml PO Q6HR PRN PRN Reason: GI DISTRESS Stop: 05/24/16 19:47 Albuterol Sulfate (Albuterol 2.5mg/3ml Neb Ud) 2.5 mg IH Q2HR PRN PRN Reason: Shortness of Breath or Wheeze Stop: 05/24/16 19:46 Aspirin (Ecotrin) 325 mg PO DAILY [facility] Stop: 05/25/16 08:59 Last Admin: 03/28/16 10:25 Dose: Not Given Bisacodyl (Dulcolax 10 Mg Supp) 10 mg RC DAILY PRN PRN Reason: BOWEL MANAGEMENT IF MOM INEFFE Stop: 05/24/16 19:39 Cilostazol (Pletal) 50 mg PO DAILY [facility] Stop: 05/25/16 08:59 Last Admin: 03/28/16 10:26 Dose: Not Given Clonidine HCl (Catapres) 0.1 mg PO Q6HR PRN PRN Reason: SBP GREATER THAN 160 Stop: 05/24/16 19:47 Docusate Sodium (Colace) 100 mg PO DAILY [facility] Stop: 05/25/16 08:59 Last Admin: 03/28/16 10:26 Dose: Not Given Gabapentin (Neurontin) 300 mg PO TID [facility] Stop: 05/24/16 20:59 Last Admin: 03/28/16 10:25 Dose: 300 mg Guaifenesin (Robitussin) 200 mg PO Q4HR PRN PRN Reason: Cough or Congestion Stop: 05/24/16 19:47 Dextrose/Sodium Chloride (D5-0.45ns) 1,000 mls @ 75 mls/hr IV .[id number] [facility] Stop: 05/24/16 19:59 Last Admin: 03/28/16 04:58 Dose: 75 mls/hr Levofloxacin (Levaquin Pb) 500 mg in 100 mls @ 100 mls/hr IV Q24HR [facility] Stop: 05/24/16 20:59 Last Admin: 03/27/16 20:27 Dose: 100 mls/hr Ipratropium [place] (Atrovent Neb 0.5mg/2.5ml) 0.5 mg IH Q2HR PRN PRN Reason: Shortness of Breath or Wheeze Stop: 05/24/16 19:46 Losartan Potassium (Cozaar) 25 mg PO DAILY [facility] Stop: 05/25/16 08:59 Last Admin: 03/28/16 10:25 Dose: 25 mg Magnesium Hydroxide (Milk Of Magnesia) 30 ml PO Q24H PRN PRN Reason: IF NO BM IN THREE DAYS Stop: 05/24/16 19:39 Meclizine HCl (Antivert) 25 mg PO DAILY PRN PRN Reason: Nausea / Vomiting Stop: 05/24/16 19:46 Ondansetron HCl (Zofran) 4 mg IV Q8H PRN PRN Reason: Nausea / Vomiting Stop: 05/24/16 19:47 Pantoprazole Sodium (Protonix) 40 mg PO DAILY [facility] Stop: 05/25/16 08:59 Last Admin: 03/28/16 10:26 Dose: Not Given Zolpidem Tartrate (Ambien) 5 mg PO HS PRN PRN Reason: Insomnia Stop: 05/24/16 19:39 Last Admin: 03/27/16 20:28 Dose: 5 mg Internal Medicine Assmt/Plan - Assessment Assessment: possible sepsis leukocytosis dizziness vomiting oa htn gerd
--- NOTE | 2016-03-28 21:37 | Discharge Summary ---
FINAL DIAGNOSES: Leukocytosis resolved; dizziness, resolved; vomiting, resolved; osteoarthritis, hypertension, gastroesophageal reflux disease. HISTORY OF PRESENT ILLNESS: This is a 71-year-old female with a history of osteoarthritis, hypertension and GERD who was admitted from nursing facility secondary to intractable vomiting. The patient was dizzy and not acting herself. PHYSICAL EXAMINATION: VITAL SIGNS: Stable. HEENT: Head normocephalic, atraumatic. NECK: Supple. No masses. LUNGS: Clear bilaterally upon auscultation. HEART: Regular rate and rhythm. No murmurs or gallops. SKIN: Intact, warm to touch. ABDOMEN: Soft, nontender, nondistended, positive bowel sounds in all 4 quadrants. HOSPITAL COURSE: During the hospital stay, the patient was admitted to the med/surg unit. The patient had a consultation with Dr. Palumbo. The patient was kept on IV fluids for hydration. Also, the patient was on IV antibiotics of Levaquin 500 mg IV q.24. LABORATORY DATA: The patient's initial white count was 16.6. The patient's white count improved to 5.4. The patient had a chest x-ray done in the ER and the impression is mild prominence of the aortic knob with torturous ____ of aorta. If indicated CT provided to show details. The patient also had a KUB and the impression is nonspecific bowel gas pattern, severe degenerative changes throughout the spine with partial compression involving multiple vertebrae. GI plan of care was to do an EGD. The patient refused a procedure. The patient did not have any nausea, vomiting during the hospital stay. The patient's white count improved. For these reasons patient was stable for discharge. CONDITION UPON DISCHARGE: Fair. DISPOSITION: ____ [facility]iary. JOB# [id number]
== END 2016-03-28 15:40 | DRG 392 ==
LOC: ER 15:07 → MSI 18:00
PROVIDERS: ADMIT Internal Medicine; ATTEND Internal Medicine
DX: K21.9 Gastro-esophageal reflux disease without esophagitis (principal); E87.1 Hypo-osmolality and hyponatremia; G62.9 Polyneuropathy, unspecified; N39.0 Urinary tract infection, site not specified; I10 Essential (primary) hypertension; M19.90 Unspecified osteoarthritis, unspecified site; I73.9 Peripheral vascular disease, unspecified; Z90.49 Acquired absence of other specified parts of digestive tract; Z90.710 Acquired absence of both cervix and uterus; Z96.641 Presence of right artificial hip joint; Z98.890 Other specified postprocedural states; Z79.82 Long term (current) use of aspirin
CPT/HCPCS: 36415-UA; 71010-TC; 74000-TC; 80048-TC; 80053-TC; 81001-TC; 82140-TC; 82150-TC; 82607-90; 82746-90; 83690-TC; 83735-TC; 84443-TC; 85025-TC; 85610-TC; 94760; J1956; J3475; Z7610